=== PATIENT | female | born 1975 | race Caucasian/White ===

== ENCOUNTER → 2017-05-12 | Day surgery (SDC) | payer MEDICARE ==
[~2017-05-12] MED LIST: CARVEDILOL6.25 MG PO; EXCEDRIN EXTRA1 EAC3 PO; FLEXERIL10 MG PO; HYDROMORPHONE; MARINOL2.5 MG PO; TRAZODONE HCL300 MG PO
--- NOTE | ~2017-05-12 | EKG ---
PATIENT: DURGA NOBLES UNIT #: [id number] Ventricular Rate: 85 BPM Atrial Rate: 85 BPM P-R Interval: 158 ms QRS Duration: 78 ms Q-T Interval: 390 ms QTC Calculation(Bezet): 464 ms P [place]: 73 degrees Calculated R [place]: 26 degrees Calculated T [place]: 64 degrees Diagnosis Line: Normal sinus rhythm Diagnosis Line: Normal ECG Diagnosis Line: No previous ECGs available Diagnosis Line: Confirmed by OZ VARGAS MD ([id number]) on Diagnosis Line: 05/13/2017 9:02:59 AM INTERPRETING MD: SAM ABDALLA
--- NOTE | ~2017-05-12 | OR ---
Unit #: [id number] #: [id number] Patient: DURGA NOBLES [id number] [address] [place], [place] [address] [id number] MR#: [id number] NAME: DURGA NOBLES ROOM: Date of Procedure: 05/12/2017 Admission Date: 05/12/2017 Surgeon: Tarun Ty M.D. : 1975 Attending Physician: Tarun Ty M.D. Referring Physician: Tarun Ty M.D. Primary Care Physician: Shea Castro OPERATIVE REPORT PREOPERATIVE DIAGNOSIS Malfunction of intrathecal pump. POSTOPERATIVE DIAGNOSIS Malfunction of intrathecal pump. PROCEDURE PERFORMED 1. Removal of Codman 3000 pump. 2. Implantation of SynchroMed Medtronic II pump. SURGICAL INDICATION RATIONALE Ms. Durga Nobles is a pleasant 42-year-old female, who has been having severe intractable pain despite having a pain pump in her. This is a non-programmable Codman pump which I have tried increasing the concentration with very limited relief of pain. The patient has been very interested in moving forward with implanting a programmable pump to see if that will control her pain better. The patient has been having increased pain, especially in combination with her condition called pheochromocytoma, it is imperative that her pain be adequately controlled. Otherwise, she will be in hypertensive crisis due to the pheochromocytoma. DESCRIPTION OF PROCEDURE After obtaining full informed consent and after discussion with the patient of possible complications including infection, bleeding, paralysis, mild headaches, , and other perioperative complications were discussed with the patient and consent was obtained in front of nurse Catherine. I also had in-detail discussion with the patient regarding the risks, benefits, and alternatives available including the consent decree which I explained to the patient in language that she could understand and I used a teach back method to make sure that she understood correctly. Paty Ortega, who is a [employer] visitor services representative also had a detailed discussion with the patient regarding the consent decree and all her questions were answered to her satisfaction. The patient was then taken back to the operating room, where a time-out was done in accordance to the joint commission guidelines where the patient's identity, procedure, and site of procedure were verified. The patient received antibiotic coverage 30 minutes before entering the operating room. The patient was then positioned in the supine position and general anesthesia was induced. All pressure points were padded and this was in accordance to the anesthesiologist. The patient was prepped and draped in the usual fashion. I then anesthetized the skin using 1% Unit #: [id number] #: [id number] Patient: DURGA NOBLES plain lidocaine. Once this was done, I made an incision using a #10-blade and without much difficulty I was able to locate and isolate the Codman 3000 pump. The pump was then removed from the pocket and the pocket was copiously irrigated and all bleeders were halted. I then primed the SynchroMed II pump with hydromorphone at a concentration of 5 mg/mL, and I performed a back table prime of this pump. Once this was done, the Codman Silastic catheter was incised and I could see clear flow of CSF. I used a pin connector to connect this piece of catheter to the Medtronic pump catheter. Once this was done, the pump was placed into the pocket. Prior to this, I placed a TyRx pouch which was an antibiotic impregnated pouch into the pocket. The pump snugly fit into the pump pocket and was secured to the underlying tissue using 3-0 Prolene sutures. I made sure that all the bleeders were stopped and of course, this pump site was irrigated prior to placing the pump in. I used irrigant to irrigate this pocket copiously for 20 minute. Once this was done, the incision was closed using 3-0 interrupted Vicryl sutures in 2 layers and the skin was approximated with romero. The patient was then brought back to the recovery room for neurological monitoring. PLAN OF CARE The patient had an uneventful recovery period and was discharged home neurologically intact with plans to return to my office in 7 days to have her romero removed. The patient's pump has been started at 1.79 mg a day and the patient has the ability to use the patient corrective therapy aide teacher to deliver 0.02 mg with 3 activations. Therefore, her total daily maximum activations would be 1.8532 mg per day. The patient's pump segment revision kit serial #[id number] and the SynchroMed II pump serial #[id number]. Dictated by... Bere Rush/shannon TD: 05/13/2017 08:18 JOB #: [id number] OPERATIVE REPORT Page 1 of 1 X Tarun Ty MD PROCEDURE OPERATIVE NOTE
== END | disposition home or self-care (01) ==
LOC: CSUR 08:35
DX: T85.615A Breakdown (mechanical) of other nervous system device, implant or graft, initial encounter (principal); Y75.8 Miscellaneous neurological devices associated with adverse incidents, not elsewhere classified; Q79.6 Ehlers-Danlos syndromes; D35.00 Benign neoplasm of unspecified adrenal gland
CPT/HCPCS: 93005; C1772; J1170; J1642; J2250; J2405; J3010